=== PATIENT | male | born 1965 | race Caucasian/White ===

== ENCOUNTER 2021-07-15 03:59 | Inpatient (IN) | payer MEDICARE, MEDICAID ==
[~2021-07-15] VITALS: Ht 185.4 cm; Wt 147.6 kg
[2021-07-15 03:19] VITALS: BP 146/98
[~2021-07-15 03:59] MED LIST: IBUP-1027 PO; SUCR1ORA14 PO
[2021-07-15] MEDS ORDERED: ONDANSETRON PF 4 MG/2 ML VIAL. IV PRN (04:15)
[2021-07-15] MEDS: MORPHINE SULFATE 2 MG/ML INJ. IVP PRN ×2 (04:42→07:56)
--- NOTE | 2021-07-15 05:22 | NUR ---
Admit from [facility] to [facility] room 669 via EMS/[facility]. A/O x 4. Stand to transfer from [facility] to bed with standby assist. History of Left BKA. Prosthetic in place on arrival. Reports back pain for more than 1week and was seen in PCP office. Rates pain 7/10 located in upper medial back. Orientated to room and call light. Reviewed POC. Resting in bed. Call light at hand.
--- NOTE | 2021-07-15 06:00 | NUR ---
Reports he [facility] but can not recall his home medication list. Patient will ask to bring home med list in this morning.
[2021-07-15 07:00] VITALS: BP 144/70
[2021-07-15] MEDS: ENOXAPARIN 40 MG/0.4 ML SYRINGE. SQ SCH ×2 (10:15→19:47)
[2021-07-15] MEDS: MORPHINE SULFATE 4 MG/ML INJ. IVP PRN (10:25)
[2021-07-15] MEDS ORDERED: ALBUTEROL SULFATE 2.5 MG/3 ML NEBU. NEB PRN (10:30)
--- NOTE | 2021-07-15 10:36 | CONS ---
DATE OF CONSULTATION: 07/15/2021 PULMONARY CONSULTATION REASON FOR CONSULTATION: Lung mass. HISTORY OF PRESENT ILLNESS: The patient is a 56-year-old male who has been a smoker for 35 years. He was brought into [facility] Emergency Room with complaint of shortness of breath. Also has a cough, which has on 1 occasion productive of blood-tinged sputum. The patient has lost appetite and has lost weight. He has been a smoker for 35 years. He still smokes. He has no history of deep vein thrombosis or pulmonary embolism. A CT angiogram was performed and I had reviewed the CT chest done at [facility]. There was no evidence of pulmonary embolism. The patient has significant mediastinal and right hilar adenopathy. There is a small loculated right pleural effusion and there are multiple pleural based densities suggestive of pleural metastasis. There is significant evidence of emphysema, especially in the upper lobes. Consultation requested for further evaluation and management. PAST MEDICAL HISTORY: Significant for suspected severe COPD. Smoked for 35 years. PAST SURGICAL HISTORY: No recent surgeries. ALLERGIES: None. CURRENT MEDICATIONS: Reviewed as listed in the MRAD. REVIEW OF SYSTEMS: A 12-point system obtained. Pertinent positives discussed in my history of present illness, otherwise noncontributory. All systems that were negative were reviewed as well. FAMILY HISTORY: Noncontributory to lungs. SOCIAL HISTORY: Smoker for 35 years and still smokes cigarettes. PHYSICAL EXAMINATION: VITAL SIGNS: Reviewed. Pulse ox 98% on room air. NECK: Supple. LUNGS: With occasional wheezes. CARDIOVASCULAR: With a regular rate. ABDOMEN: Soft, nontender, obese. EXTREMITIES: With no pitting edema. LABORATORY DATA: Reviewed from [facility]. They are pending from [facility]. CT angiogram was also reviewed. IMPRESSION: 1. 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 The patient also has another masks close to the pleura. The findings on CT chest are highly suspicious for bronchogenic cancer, likely stage IV. 2. Chronic obstructive pulmonary disease with an exacerbation. 3. Weight loss and loss of appetite, secondary to suspected malignancy. RECOMMENDATIONS: 1. Discussed with the patient. I explained to him the CT chest findings. He is agreeable for invasive biopsy. He would either need bronchoscopy versus CT-guided biopsy of the mass, which is close to the pleura. I will also order a CT abdomen and pelvis and to rule out any liver or bone metastasis. 2. Add bronchodilators. 3. Hold off on any DVT prophylaxis with Lovenox until biopsies were done. 4. PFTs as an outpatient. 5. We will make further recommendations once diagnosis is confirmed. TORRIE DR: Jami TID: [id number]
--- NOTE | 2021-07-15 10:37 | HP ---
DATE OF SERVICE: 07/15/2021 ADMIT DATE: 07/15/2021 HISTORY OF PRESENT ILLNESS: The patient is a 56-year-old male patient who presented to the Emergency Room of [facility] with a complaint of severe low back pain that has been started about 2 weeks ago and has worsened over the last few days prior to arrival to the Emergency Room. He also has complained of increasing shortness of breath and some chest pain and cough that is persistent, although he denied any phlegm or hemoptysis. The patient was extensively investigated in the Emergency Room and has had lab work and imaging studies. His white cell count was slightly elevated at 12.1. His chemistry was mostly unremarkable. His prothrombin time, INR and APTT normal; however, D-dimer was high at 5.09. Urinalysis essentially unremarkable and toxic screen was positive for opiates. He did have a chest x-ray, which basically showed the cardiomediastinal silhouette is within normal limits, lungs and pleura showed diffuse interstitial prominence, and bilateral multifocal patchy opacities, greater on the right, suspected loculated right side pleural effusion and pleural thickening and the impression showed that the patient had similar to slightly decreased diffuse interstitial prominence with persistent bilateral multifocal patchy airspace disease, suspected loculated right pleural effusion and pleural thickening. Given his elevated D-dimer, he underwent CT angio of the chest, which basically showed that the patient has no evidence of pulmonary embolism; however, he has moderate right-sided hilar and right mediastinal lymphadenopathy consistent with metastatic cancer and there is a small loculated right-sided pleural effusion. There are multiple pleural based densities on the right and a few parenchymal densities, findings suggest cancer which could be bronchogenic and/or mesothelioma. Lymphoma is felt to be less likely. He did have a CT scan of the lumbar spine, which basically showed that the patient has degenerative changes with multilevel central and neuroforaminal stenosis, no acute finding. The patient was transferred to [facility] to consult the timber appraiser and for pain management. PAST MEDICAL HISTORY: Significant for chronic obstructive pulmonary disease, benign prostatic hypertrophy and chronic low back pain. PAST SURGICAL HISTORY: Significant for right hip replacement, left below-knee amputation, bilateral rotator cuff repair and bilateral carpal tunnel release. He also had had esophagogastroduodenoscopy. He apparently is known to have also gastroesophageal reflux disease and hiatal hernia according to him. ALLERGIES: He has no known drug allergies. MEDICATIONS: He is currently on following medications: He is on dicyclomine 20 mg 4 times a day, ibuprofen 400 mg every 8 hours as needed, ranitidine 150 mg twice a day, sucralfate 1 gram 4 times a day and hydrocortisone/pramoxine or Analpram rectally 3 times a day. FAMILY HISTORY: Noncontributory. SOCIAL HISTORY: He is , has grown-up children. He continues to smoke and apparently has [id number] plus. He does not drink alcohol or use recreational drugs. He is on disability. He lives with his and he has a left lower extremity prosthesis and he is able to walk. He used to drive a cab. REVIEW OF SYSTEMS: As per history of present illness. PHYSICAL EXAMINATION: GENERAL: On arrival to the Emergency Room, the patient was slightly tachypneic, but there is no pallor, jaundice, cyanosis or thyromegaly. No jugular venous distention. No lower limb edema. VITAL SIGNS: His heart rate was 88, blood pressure was 130/90, temperature was 97.9, respiratory rate was 28 and oxygen saturation was 96% on room air. HEAD, EYES, EARS, NOSE, AND THROAT: Normocephalic, atraumatic. NECK: Supple. HEART: Showed normal first and second heart sounds. No gallop or murmur. CHEST: Clear to auscultation, no crepitation or rhonchi. ABDOMEN: Distended, soft, nontender. NEUROLOGIC: He was awake, alert, responding appropriately. All cranial nerves are intact. He moves extremities without difficulty, ambulates with his prosthesis. LABORATORY DATA: This morning showed a white cell count 12.1, hemoglobin 12.4, hematocrit 37, MCV 93 and platelet count 222,000 with manual differential showed 66% polymorphs, 15% lymphocytes and 11% monocytes. His prothrombin time, INR and APTT are normal. D-dimer was high at 5.09 g/dL. His chemistry showed a serum sodium 139, potassium 3.7, chloride 102, bicarbonate 27, anion gap of 10, BUN 9, creatinine 0.8, estimated GFR was 100 mL per minute. His glucose 97, calcium was 9, magnesium was 1.8. Total bilirubin, AST, ALT, alkaline phosphatase were normal. CK was 55. Troponin I high-sensitivity was 11. Beta natriuretic peptide was 114. Total protein 6.8, albumin 3.2. Urinalysis essentially unremarkable and toxic screen was positive for opiates. His influenza A and B were negative and coronavirus by rapid antigen testing was negative. ASSESSMENT AND PLAN: In summary, this is a 56-year-old male patient who presented with severe low back pain that started about 2 weeks ago and has worsened over the last few days. He also complained of chest pain and shortness of breath. His CT angio of the chest showed that the patient has no evidence of pulmonary embolism; however, he has moderate right hilar and right mediastinal lymphadenopathy consistent with metastatic cancer. He has also small loculated right-sided pleural effusion. There are multiple pleural based densities in the right and a few parenchymal densities, finding suggestive of cancer, which could be bronchogenic or mesothelioma. We will reconcile all his medications and I have consulted the timber appraiser to assist with evaluation and treatment. WANDA DR: Abel TID: [id number]
[2021-07-15 10:43] VITALS: BP 145/85
--- NOTE | 2021-07-15 11:19 | NUR ---
Lovenox held due to tentative procedure per Dr. Sewell's orders.
[2021-07-15] MEDS: PANTOPRAZOLE 40 MG TABLET.DR. PO SCH (11:35)
[2021-07-15] MEDS: SUCRALFATE 1 GM TABLET. PO SCH ×3 (11:35→19:46)
[2021-07-15] MEDS: HYDROmorphone 2 MG/ML INJ. IVP PRN ×4 (11:36→22:54)
[2021-07-15 11:38] LABS: PROTHROMBIN TIME PATIENT 12.9 SEC (11.7-14.0)
[2021-07-15] MEDS ORDERED: ALBUTEROL SULFATE 2.5 MG/3 ML NEBU. ONE (11:40)
[2021-07-15] MEDS: IPRATRPIUM/ALBUTEROL 0.5/2.5MG 3 ML NEBU. NEB SCH ×3 (12:00→21:21)
--- NOTE | 2021-07-15 14:49 | RAD ---
CT scan abdomen and pelvis without contrast 07/15/2021 CLINICAL HISTORY: Metastatic lung cancer. TECHNIQUE: Unenhanced, contiguous, 2.5 mm axial sections were obtained through the abdomen and pelvis . One or more of the following individualized dose reduction techniques were utilized for this study: 1. Automated exposure control. 2. Adjustment of the mA and/or kV according to patient size. 3. Use of iterative reconstruction technique. FINDINGS: Comparison is made to patient's CT scan abdomen and pelvis dated 06/15/2017. Additional comp arison is made to patient's CTA of the chest performed earlier today. Images through the lung bases demonstrate a small right pleural effusion. Pleural masses are seen sca ttered throughout the right lung base measure 5 mm to 4.3 cm in size. Rounded low-attenuation lesions are seen involving both lobes of the liver to measure 3 mm to 5.5 cm in size. These are consistent with hepatic cysts. The spleen, pancreas, and left adrenal gland are wi thin normal limits. A 2.5 cm mass is seen involving the right adrenal gland which is new since previo us examination. This is consistent with a metastasis. Residual contrast is seen both intrarenal collecting systems along with the renal pelvises and ureter s. A 5.5 cm rounded low-attenuation lesion is seen involving the midpole of the right kidney. This li leonor represents a cyst. Atherosclerotic calcification of the abdominal aorta is seen. The abdominal aorta tapers normally. Ca lcified gallstones are seen within the gallbladder. No free fluid or free air is seen within the abdo men. There is no evidence of bowel obstruction. The appendix is well-visualized and is within normal limits. No retroperitoneal lymphadenopathy is seen. A mass is seen within the mesentery of the left mid abdomen. This measures 2.5 cm in size. There is n ew since the previous examination. This may represent an enlarged lymph node. Images through the pelvis demonstrate the urinary bladder to be contracted. Contrast is seen within t he urinary bladder. No free fluid is seen. No pelvic or inguinal lymphadenopathy is noted. Mild S-shaped curvature of the thoracolumbar spine is seen. Degenerative changes are seen involving l ower thoracic and throughout the lumbar spine. Moderate degenerative changes are seen within the left hip. The patient is post right VITO. IMPRESSION: 1. 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 2. 2.5 cm mass is seen within the mesentery of the left mid abdomen which likely represents a metasta tic lymph node. Electronically signed by: Alfonzo Dalton MD (07/15/2021 2:47 PM) [id number]
[2021-07-15 14:56] VITALS: BP 126/80
--- NOTE | 2021-07-15 16:22 | NUR ---
SS following for discharge planning. SS reviewed pt chart and discussed with pt RN. Pt is from home with spouse and is currently on room air. Pulmonology following. PT/OT ordered. SS will continue to follow for discharge planning.
[2021-07-15 19:13] VITALS: BP 131/67
[2021-07-15] MEDS ORDERED: SUCRALFATE 1 GM/10 ML ORAL.SUSP. PO SCH (21:00)
[2021-07-15 22:22] VITALS: BP 122/61
[2021-07-16] VITALS (16 sets, daily range): BP systolic 112–140; BP diastolic 62–89
[2021-07-16] MEDS: HYDROmorphone 2 MG/ML INJ. IVP PRN ×7 (02:06→22:54)
[2021-07-16] MEDS: IPRATRPIUM/ALBUTEROL 0.5/2.5MG 3 ML NEBU. NEB SCH ×4 (07:46→20:00)
--- NOTE | 2021-07-16 08:25 | PN ---
DATE: 07/16/2021 SUBJECTIVE: The patient is sitting, slightly up in bed, complaining of severe back pain. He has had a CT scan of the abdomen and pelvis, which apparently showed a 2.5 cm right adrenal metastases and also 2.5 cm masses seen within the mesentery of the left mid abdomen, which likely represents metastatic lymph node. He apparently is scheduled for a CT-guided abdominal mass biopsy this morning. PHYSICAL EXAMINATION: GENERAL: When I examined him, he looked well and was clearly in no apparent respiratory distress. There is no pallor, jaundice, cyanosis or thyromegaly. No jugular venous distention. No limb edema. VITAL SIGNS: His heart rate was 95, blood pressure is 128/62, temperature was 98.1, respiratory rate was 22 and oxygen saturation was 95% on room air. HEAD, EYES, EARS, NOSE, AND THROAT: Normocephalic, atraumatic. NECK: Supple. HEART: Normal first and second heart sounds. No gallop, rub or murmur. CHEST: Shows central trachea, equal bilateral chest expansion, air entry, vesicular breath sounds. I could not really appreciate any crepitation or rhonchi. ABDOMEN: Distended, soft, nontender. NEUROLOGIC: He was grossly intact. He has left below-knee amputation. His intake and output are incompletely recorded. LABORATORY DATA: Showed prothrombin time of 12.9, INR 1. ASSESSMENT: 1. Moderate right hilar and right mediastinal lymphadenopathy consistent with metastatic cancer. small loculated right side pleural effusion. 2. He has multiple pleural based densities in the right and few parenchymal densities finding suggestive of cancer, which could be bronchogenic or mesothelioma. CT scan of the abdomen showed that he has a mass in the right adrenal gland and also metastatic lymph nodes. 3. Other medical problems include: A. Chronic obstructive pulmonary disease. B. Benign prostatic hypertrophy. PLAN: The patient is scheduled for CT-guided abdominal mass biopsy. BELL/DARYN DR: Abel TID: [id number]
[2021-07-16] MEDS: ENOXAPARIN 40 MG/0.4 ML SYRINGE. SQ SCH ×2 (08:35→21:00)
--- NOTE | 2021-07-16 10:00 | PDOC ---
PULMONARY PROGRESS NOTES DATE: 07/16/21 TIME: 09:59 Subjective Denies any shortness of breath. Vitals Vital Signs Date Time Temp Pulse Resp B/P (MAP) Pulse Ox O2 Delivery O2 Flow Rate FiO2 07/16/21 08:24 Room Air 07/16/21 07:50 95 07/16/21 07:00 97.7 96 18 127/77 (94) 97.7 General: Alert, No acute distress Lungs: Clear Cardiovascular: S1 Abdomen: Soft, Other (Obese) Neuro Exam: Alert Extremities: No Edema Skin: Warm Labs Laboratory Tests Test 07/15/21 10:25 Prothrombin Time 12.9 SEC (11.7-14.0) Prothromb Time International Ratio 1.0 (0.8-1.1) Laboratory Tests Test 07/15/21 10:25 Prothrombin Time 12.9 SEC (11.7-14.0) Prothromb Time International Ratio 1.0 (0.8-1.1) Medications Active Scripts Medications Dose Route/Sig Max Daily Dose Days Date Category Sucralfate 1 Gm/10 Ml Oral.susp 10 Ml PO BID 05/09/14 Reported Impression . 1. 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 The patient also has another masks close to the pleura. The findings on CT chest are highly suspicious for bronchogenic cancer, likely stage IV. 2. Chronic obstructive pulmonary disease with an exacerbation. 3. Weight loss and loss of appetite, secondary to suspected malignancy. 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 Plan . 1. Discussed with patient and interventional radiology. Based on the CT abdomen and pelvis, would go for mesenteric lymph node versus adrenal metastasis. We will avoid the lung due to risk of pneumothorax 2. bronchodilators. 3. Hold off on any DVT prophylaxis with Lovenox until biopsies were done. 4. PFTs as an outpatient. 5. We will make further recommendations once diagnosis is confirmed. ISRAEL PIZANO MD July 16, 2021 10:00
[2021-07-16] MEDS ORDERED: LIDOCAINE WITH 8.4% SOD BICARB 3 ML DISP.SYRIN. ONE (10:47)
[2021-07-16] MEDS ORDERED: fentaNYL PF VIAL 250 MCG/5 ML VIAL ONE (11:04)
[2021-07-16] MEDS ORDERED: MIDAZOLAM HCL/PF 5 MG/5 ML VIAL. ONE (11:04)
[2021-07-16] MEDS ORDERED: LIDOCAINE WITH 8.4% SOD BICARB 3 ML DISP.SYRIN. IJ ONE (11:15)
[2021-07-16] MEDS ORDERED: MIDAZOLAM HCL/PF 5 MG/5 ML VIAL. IV ONE (11:15)
[2021-07-16] MEDS ORDERED: fentaNYL PF VIAL 250 MCG/5 ML VIAL IV ONE (11:15)
[2021-07-16] MEDS: SUCRALFATE 1 GM TABLET. PO SCH ×4 (11:30→20:39)
--- NOTE | 2021-07-16 12:00 | NUR ---
Patient back from biopsy around 1200. O2 sat in high 80s, 2L O2 NC placed, rest of VSS. Frequent VS printed & placed in chart. Band-aide on L lateral abd CDI.
[2021-07-16] MEDS: PANTOPRAZOLE 40 MG TABLET.DR. PO SCH (12:22)
[2021-07-16] MEDS: MORPHINE SULFATE 4 MG/ML INJ. IVP PRN ×2 (14:16→20:16)
--- NOTE | 2021-07-16 16:13 | RAD ---
07/16/2021 Procedure: CT-guided biopsy, left peritoneal nodule Clinical Indication: Lung mass, mediastinal adenopathy, pleural disease and nodularity with associate d left peritoneal nodule. Patient has poor respiratory status and severe emphysema. Biopsy of left pe ritoneal nodule performed to establish diagnosis of possible malignancy/metastatic disease Consent: The procedure was explained in its entirety to the patient or the patients designated repres entative by a member of the treatment team, including a discussion of the risks, benefits and commonl y accepted alternatives to the procedure, as well as the expected consequences of no therapy whatsoev er. Discussion of the risks included, but was not limited to, those that are most frequent and thos e that are rare but possibly severe or life-threatening, as well as the possibility of unforeseen com plications. Discussion: Informed consent was obtained. Patient was brought to the CT scanner and placed in the supine position. A time out procedure was performed. The left abdomen was prepped and draped using st erile barrier technique. CT imaging represents a left peritoneal nodule, similar prior imaging studie s. Percent lidocaine was administered for local anesthesia. Under intermittent CT guidance, a 17-gaug e [place] advanced to the periphery of the nodule. Core biopsy samples were obtained and placed in form tushar. [place] were removed. Repeat CT demonstrates no immediate complication. Sterile dressings were applied. Sedation: Conscious sedation was performed for 30 minutes. Sedation was carried while the patient wa s continually monitored by a member of the Radiology nursing staff. Continual cardiopulmonary monito ring was carried out during the procedure. Impression: CT-guided biopsy, left peritoneal nodule CT DOSING PQRS STATEMENT: One or more of the following individualized dose reduction techniques were utilized for this examinat ion: 1. Automated exposure control 2. Adjustment of the mA and/or kV according to patient size 3. Use of iterative reconstruction technique Electronically signed by: Donis Munguia MD (07/16/2021 4:11 PM) [id number]
[2021-07-16] MEDS: ACETAMINOPHEN 325 MG TABLET. PO PRN (20:40)
--- NOTE | 2021-07-16 22:40 | NUR ---
Further pain management orders rec'd by telephone per Dr. Cotter.
[2021-07-16] MEDS ORDERED: diphenhydrAMINE HCL 25 MG CAPSULE PO PRN (22:45)
[2021-07-17 03:30] VITALS: BP 122/82
[2021-07-17] MEDS: HYDROmorphone 2 MG/ML INJ. IVP PRN ×5 (03:51→21:30)
[2021-07-17 05:02] LABS: BASO # 0.1 x10^3/uL (0.0-0.2); BASO % 1 % (0-3); EOS # 0.7 x10^3/uL (0.0-0.7); EOS % 7 % (0-3); HEMATOCRIT 36.6 % (39.0-53.0); LYMPH # 1.8 x10^3/uL (1.0-4.8); LYMPH % 17 % (24-48); MEAN CORPUSCULAR HEMOGLOBIN 31 pg (25-35); MEAN CORPUSCULAR HGB CONC 33 g/dL (31-37); MEAN CORPUSCULAR VOLUME 93 fL (79-100); MONO # 1.5 x10^3/uL (0.0-1.1); MONO % 14 % (0-9); NEUT # 6.5 x10^3/uL (1.8-7.7); NEUT % 61 % (31-73); PLATELET COUNT 222 x10^3/uL (140-400); RED BLOOD COUNT 3.93 x10^6/uL (4.30-5.70); RED CELL DISTRIBUTION WIDTH 14.7 % (11.5-14.5); WHITE BLOOD COUNT 10.6 x10^3/uL (4.0-11.0)
[2021-07-17 05:56] LABS: ALBUMIN 2.9 g/dL (3.4-5.0); ALBUMIN/GLOBULIN RATIO 0.7 (1.0-1.7); CALCIUM 9.1 mg/dL (8.5-10.1); CREATININE 0.7 mg/dL (0.7-1.3); GFR 117.5; POTASSIUM 3.7 mmol/L (3.5-5.1); TOTAL BILIRUBIN 0.7 mg/dL (0.2-1.0); TOTAL PROTEIN 7.2 g/dL (6.4-8.2)
[2021-07-17 07:00] VITALS: BP 126/66
[2021-07-17] MEDS: IPRATRPIUM/ALBUTEROL 0.5/2.5MG 3 ML NEBU. NEB SCH ×4 (07:43→20:00)
[2021-07-17] MEDS: PANTOPRAZOLE 40 MG TABLET.DR. PO SCH (08:51)
[2021-07-17] MEDS: SUCRALFATE 1 GM TABLET. PO SCH ×4 (08:51→20:39)
[2021-07-17] MEDS: ENOXAPARIN 40 MG/0.4 ML SYRINGE. SQ SCH ×2 (09:00→20:39)
--- NOTE | 2021-07-17 09:07 | PN ---
DATE: 07/17/2021 SUBJECTIVE: The patient is resting, slightly propped up in bed, in no apparent respiratory distress. He continued to have severe low back pain for which he is now on hydromorphone 2 mg every [address]-guided biopsy of his left peritoneal nodule successfully and his post-procedures had no complications. PHYSICAL EXAMINATION: GENERAL: When I examined him this morning, he looked slightly tachypneic, but no pallor, jaundice, cyanosis or thyromegaly. No jugular venous distention. No lower limb edema. VITAL SIGNS: His heart rate was 90, blood pressure is 122/82, temperature was 98, respiratory rate 24, and oxygen saturation was 94% on 3 liters of oxygen. HEAD, EYES, EARS, NOSE, AND THROAT: Normocephalic, atraumatic. NECK: Supple. HEART: Normal first and second heart sounds. No gallop, rub or murmur. CHEST: Shows central trachea, equal bilateral chest expansion, air entry, vesicular breath sounds with diffuse bilateral rhonchi. I could not appreciate any crepitation. ABDOMEN: Distended, soft, nontender. NEUROLOGIC: He is grossly intact. He has left below-knee amputation. His intake and output are incompletely recorded. LABORATORY DATA: His lab work this morning showed white cell count of 10.6, hemoglobin 12, hematocrit 36, MCV 93 and platelet count 222,000 with normal manual differential. His chemistry showed a serum sodium 139, potassium 3.7, chloride 102, bicarbonate 28, anion gap of 9, BUN 11, creatinine 0.7. Estimated GFR was 117 mL per minute. His glucose 101, calcium was 9.1. Total bilirubin, AST, ALT, alkaline phosphatase were normal. Total protein 7.2, albumin was 2.9. His prothrombin time and INR within normal range. ASSESSMENT: 1. This is a 56-year-old male patient who presented with severe low back pain that has started about 2 weeks ago and has worsened over the last few days. Also, complained of increasing shortness of breath and some chest pain and cough that has been resistant, although denies any phlegm or hemoptysis. His CT angio of the chest showed moderate right hilar and right mediastinal lymphadenopathy consistent with metastatic disease, has also small loculated right side pleural effusion and pleural thickening. 2. He has multiple pleural based densities and on the right few parenchymal densities findings suggestive of cancer, which could be bronchogenic or mesothelioma. 3. CT scan of the abdomen showed a mass in the right adrenal gland and also metastatic lymph nodes. 4. Other medical problems include: A. Chronic obstructive pulmonary disease. B. Benign prostatic hypertrophy. PLAN: To continue with pain management. Continue with bronchodilator. Continue with DVT prophylaxis. I will discuss with Dr. Sewell whether we need to do an MRI or bone scan to elucidate the cause of his low back pain as he has evidence of metastasis to adrenal gland and mesenteric lymph nodes. He could have also metastasis to the lumbar vertebrae. HERMAN DR: Abel TID: [id number]
--- NOTE | 2021-07-17 10:11 | PDOC ---
PULMONARY PROGRESS NOTES DATE: 07/17/21 TIME: 10:10 Subjective Denies any shortness of breath. Status post mesenteric lymph node biopsy. Vitals Vital Signs Date Time Temp Pulse Resp B/P (MAP) Pulse Ox O2 Delivery O2 Flow Rate FiO2 07/17/21 08:53 93 Nasal Cannula 3.0 07/17/21 05:25 24 07/17/21 03:30 98.0 90 122/82 (95) 98.0 General: Alert, No acute distress Lungs: Clear Cardiovascular: S1 Abdomen: Soft, Other (Obese) Neuro Exam: Alert Extremities: No Edema Skin: Warm Labs Laboratory Tests Test 07/15/21 10:25 07/17/21 04:30 07/17/21 08:13 Prothrombin Time 12.9 SEC (11.7-14.0) Prothromb Time International Ratio 1.0 (0.8-1.1) White Blood Count 10.6 x10^3/uL (4.0-11.0) Red Blood Count 3.93 x10^6/uL (4.30-5.70) Hemoglobin 12.0 g/dL (13.0-17.5) Hematocrit 36.6 % (39.0-53.0) Mean Corpuscular Volume 93 fL (79-100) Mean Corpuscular Hemoglobin 31 pg (25-35) Mean Corpuscular Hemoglobin Concent 33 g/dL (31-37) Red Cell Distribution Width 14.7 % (11.5-14.5) Platelet Count 222 x10^3/uL (140-400) Neutrophils (%) (Auto) 61 % (31-73) Lymphocytes (%) (Auto) 17 % (24-48) Monocytes (%) (Auto) 14 % (0-9) Eosinophils (%) (Auto) 7 % (0-3) Basophils (%) (Auto) 1 % (0-3) Neutrophils # (Auto) 6.5 x10^3/uL (1.8-7.7) Lymphocytes # (Auto) 1.8 x10^3/uL (1.0-4.8) Monocytes # (Auto) 1.5 x10^3/uL (0.0-1.1) Eosinophils # (Auto) 0.7 x10^3/uL (0.0-0.7) Basophils # (Auto) 0.1 x10^3/uL (0.0-0.2) Sodium Level 139 mmol/L (136-145) Potassium Level 3.7 mmol/L (3.5-5.1) Chloride Level 102 mmol/L (98-107) Carbon Dioxide Level 28 mmol/L (21-32) Anion Gap 9 (6-14) Blood Urea Nitrogen 11 mg/dL (8-26) Creatinine 0.7 mg/dL (0.7-1.3) Estimated GFR (Cockcroft-Gault) 117.5 BUN/Creatinine Ratio 16 (6-20) Glucose Level 101 mg/dL (70-99) Calcium Level 9.1 mg/dL (8.5-10.1) Total Bilirubin 0.7 mg/dL (0.2-1.0) Aspartate Amino Transf (AST/SGOT) 14 U/L (15-37) Alanine Aminotransferase (ALT/SGPT) 14 U/L (16-63) Alkaline Phosphatase 98 U/L (46-116) Total Protein 7.2 g/dL (6.4-8.2) Albumin 2.9 g/dL (3.4-5.0) Albumin/Globulin Ratio 0.7 (1.0-1.7) Glucose (Fingerstick) 126 mg/dL (70-99) Laboratory Tests Test 07/17/21 04:30 07/17/21 08:13 White Blood Count 10.6 x10^3/uL (4.0-11.0) Red Blood Count 3.93 x10^6/uL (4.30-5.70) Hemoglobin 12.0 g/dL (13.0-17.5) Hematocrit 36.6 % (39.0-53.0) Mean Corpuscular Volume 93 fL (79-100) Mean Corpuscular Hemoglobin 31 pg (25-35) Mean Corpuscular Hemoglobin Concent 33 g/dL (31-37) Red Cell Distribution Width 14.7 % (11.5-14.5) Platelet Count 222 x10^3/uL (140-400) Neutrophils (%) (Auto) 61 % (31-73) Lymphocytes (%) (Auto) 17 % (24-48) Monocytes (%) (Auto) 14 % (0-9) Eosinophils (%) (Auto) 7 % (0-3) Basophils (%) (Auto) 1 % (0-3) Neutrophils # (Auto) 6.5 x10^3/uL (1.8-7.7) Lymphocytes # (Auto) 1.8 x10^3/uL (1.0-4.8) Monocytes # (Auto) 1.5 x10^3/uL (0.0-1.1) Eosinophils # (Auto) 0.7 x10^3/uL (0.0-0.7) Basophils # (Auto) 0.1 x10^3/uL (0.0-0.2) Sodium Level 139 mmol/L (136-145) Potassium Level 3.7 mmol/L (3.5-5.1) Chloride Level 102 mmol/L (98-107) Carbon Dioxide Level 28 mmol/L (21-32) Anion Gap 9 (6-14) Blood Urea Nitrogen 11 mg/dL (8-26) Creatinine 0.7 mg/dL (0.7-1.3) Estimated GFR (Cockcroft-Gault) 117.5 BUN/Creatinine Ratio 16 (6-20) Glucose Level 101 mg/dL (70-99) Calcium Level 9.1 mg/dL (8.5-10.1) Total Bilirubin 0.7 mg/dL (0.2-1.0) Aspartate Amino Transf (AST/SGOT) 14 U/L (15-37) Alanine Aminotransferase (ALT/SGPT) 14 U/L (16-63) Alkaline Phosphatase 98 U/L (46-116) Total Protein 7.2 g/dL (6.4-8.2) Albumin 2.9 g/dL (3.4-5.0) Albumin/Globulin Ratio 0.7 (1.0-1.7) Glucose (Fingerstick) 126 mg/dL (70-99) Medications Active Scripts Medications Dose Route/Sig Max Daily Dose Days Date Category Sucralfate 1 Gm/10 Ml Oral.susp 10 Ml PO BID 05/09/14 Reported Impression . 1. 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 The patient also has another masks close to the pleura. The findings on CT chest are highly suspicious for bronchogenic cancer, likely stage IV. 2. Chronic obstructive pulmonary disease with an exacerbation. 3. Weight loss and loss of appetite, secondary to suspected malignancy. 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 Plan . 1. Status post biopsy of mesenteric lymph node . Await results. 2. bronchodilators. 3. Discussed with Dr. Cotter. Consult medical oncology. 4. PFTs as an outpatient. 5. We will make further recommendations once diagnosis is confirmed. ISRAEL PIZANO MD July 17, 2021 10:11
[2021-07-17 11:00] VITALS: BP 147/80
[2021-07-17] MEDS: ACETAMINOPHEN 325 MG TABLET. PO PRN (11:25)
[2021-07-17 15:00] VITALS: BP 137/78
[2021-07-17 19:10] VITALS: BP 128/80
[2021-07-17] MEDS: GABAPENTIN 300 MG CAPSULE. PO SCH (20:38)
[2021-07-17 23:25] VITALS: BP 141/90
[2021-07-18] MEDS: HYDROmorphone 2 MG/ML INJ. IVP PRN ×5 (01:37→20:35)
[2021-07-18 07:00] VITALS: BP 136/87
[2021-07-18] MEDS: IPRATRPIUM/ALBUTEROL 0.5/2.5MG 3 ML NEBU. NEB SCH ×4 (07:16→19:14)
[2021-07-18] MEDS: PANTOPRAZOLE 40 MG TABLET.DR. PO SCH (08:11)
[2021-07-18] MEDS: SUCRALFATE 1 GM TABLET. PO SCH ×4 (08:11→20:34)
[2021-07-18] MEDS: ENOXAPARIN 40 MG/0.4 ML SYRINGE. SQ SCH ×2 (08:12→20:34)
[2021-07-18] MEDS: DOCUSATE SODIUM 100 MG CAPSULE. PO SCH ×2 (08:58→20:34)
[2021-07-18] MEDS: IBUPROFEN 200 MG TABLET. PO PRN ×2 (08:59→22:51)
[2021-07-18] MEDS: POLYETHYLENE GLYCOL 3350 17 GM PACKET. PO SCH (09:00)
--- NOTE | 2021-07-18 09:05 | PN ---
DATE: 07/18/2021 SUBJECTIVE: The patient is resting, slightly propped up in bed, in no apparent distress. He continues to complain of severe back pain that required hydromorphone 2 mg every 4 hours. I did order a total body bone scan to see if there is any metastatic disease to his lumbar spine. I also consulted the medical oncologist; however, he has not seen him yet. We are also awaiting the results of the mesenteric lymph node biopsy. PHYSICAL EXAMINATION: GENERAL: When I examined him, he looked well and was clearly in no apparent respiratory distress and there was no pallor, jaundice, cyanosis. No lymphadenopathy, no thyromegaly, no jugular venous distention. No limb edema. VITAL SIGNS: His heart rate was 96, blood pressure is 136/87, temperature was 98, respiratory rate 22, and oxygen saturation was 96% on 3 liters of oxygen. HEAD, EYES, EARS, NOSE, AND THROAT: Normocephalic, atraumatic. NECK: Supple. HEART: Showed normal first and second heart sounds. No gallop, rub or murmur. CHEST: Clear to auscultation, no crepitation or rhonchi. ABDOMEN: Distended, soft, nontender. NEUROLOGIC: He is awake, alert, responding appropriately. All cranial nerves intact. He moves upper extremities without difficulty. He has left below-knee amputation. He is able to ambulate with a walker using his prosthesis. His intake was 600, output was 1200. LABORATORY DATA: Today's labs are still pending at the time of this dictation. ASSESSMENT: 1. Low back pain that started about 2 weeks ago and worsened over the few days prior to admission. He also complained of increasing shortness of breath and some chest pain, cough that has been resistant although he denied any phlegm or hemoptysis. His CT scan of the chest showed moderate right hilar and right mediastinal lymphadenopathy consistent with metastatic disease. He also has small loculated right-sided pleural effusion and pleural thickening. 2. He has multiple pleural based densities on the right, few parenchymal densities, finding suggestive of cancer, which could be bronchogenic or mesothelioma. 3. CT scan of the abdomen showed a mass in the right adrenal gland and also metastatic mesenteric lymph node. 4. Other medical problems include: A. Chronic obstructive pulmonary disease. B. Benign prostatic hypertrophy. PLAN: To continue with pain management. This patient continued to require hydromorphone. I will add also ibuprofen in between and Colace and MiraLax for constipation. Meanwhile, we will wait for the outcome of the biopsy as well as bone scan and decide on further management accordingly. BELL/JOCELIN DR: Abel TID: [id number]
[2021-07-18 11:00] VITALS: BP 132/85
--- NOTE | 2021-07-18 11:33 | PDOC ---
PULMONARY PROGRESS NOTES DATE: 07/18/21 TIME: 11:32 Subjective Denies any shortness of breath. Status post mesenteric lymph node biopsy. Vitals Vital Signs Date Time Temp Pulse Resp B/P (MAP) Pulse Ox O2 Delivery O2 Flow Rate FiO2 07/18/21 11:23 96 Nasal Cannula 3.0 07/18/21 07:00 98.0 96 22 136/87 (103) 98.0 General: Alert, No acute distress Lungs: Clear Cardiovascular: S1 Abdomen: Soft, Other (Obese) Neuro Exam: Alert Extremities: No Edema Skin: Warm Labs Laboratory Tests Test 07/17/21 04:30 07/17/21 08:13 White Blood Count 10.6 x10^3/uL (4.0-11.0) Red Blood Count 3.93 x10^6/uL (4.30-5.70) Hemoglobin 12.0 g/dL (13.0-17.5) Hematocrit 36.6 % (39.0-53.0) Mean Corpuscular Volume 93 fL (79-100) Mean Corpuscular Hemoglobin 31 pg (25-35) Mean Corpuscular Hemoglobin Concent 33 g/dL (31-37) Red Cell Distribution Width 14.7 % (11.5-14.5) Platelet Count 222 x10^3/uL (140-400) Neutrophils (%) (Auto) 61 % (31-73) Lymphocytes (%) (Auto) 17 % (24-48) Monocytes (%) (Auto) 14 % (0-9) Eosinophils (%) (Auto) 7 % (0-3) Basophils (%) (Auto) 1 % (0-3) Neutrophils # (Auto) 6.5 x10^3/uL (1.8-7.7) Lymphocytes # (Auto) 1.8 x10^3/uL (1.0-4.8) Monocytes # (Auto) 1.5 x10^3/uL (0.0-1.1) Eosinophils # (Auto) 0.7 x10^3/uL (0.0-0.7) Basophils # (Auto) 0.1 x10^3/uL (0.0-0.2) Sodium Level 139 mmol/L (136-145) Potassium Level 3.7 mmol/L (3.5-5.1) Chloride Level 102 mmol/L (98-107) Carbon Dioxide Level 28 mmol/L (21-32) Anion Gap 9 (6-14) Blood Urea Nitrogen 11 mg/dL (8-26) Creatinine 0.7 mg/dL (0.7-1.3) Estimated GFR (Cockcroft-Gault) 117.5 BUN/Creatinine Ratio 16 (6-20) Glucose Level 101 mg/dL (70-99) Calcium Level 9.1 mg/dL (8.5-10.1) Total Bilirubin 0.7 mg/dL (0.2-1.0) Aspartate Amino Transf (AST/SGOT) 14 U/L (15-37) Alanine Aminotransferase (ALT/SGPT) 14 U/L (16-63) Alkaline Phosphatase 98 U/L (46-116) Total Protein 7.2 g/dL (6.4-8.2) Albumin 2.9 g/dL (3.4-5.0) Albumin/Globulin Ratio 0.7 (1.0-1.7) Glucose (Fingerstick) 126 mg/dL (70-99) Medications Active Scripts Medications Dose Route/Sig Max Daily Dose Days Date Category Sucralfate 1 Gm/10 Ml Oral.susp 10 Ml PO BID 05/09/14 Reported Impression . 1. 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 The patient also has another masks close to the pleura. The findings on CT chest are highly suspicious for bronchogenic cancer, likely stage IV. 2. Chronic obstructive pulmonary disease with an exacerbation. 3. Weight loss and loss of appetite, secondary to suspected malignancy. 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 Plan . 1. Status post biopsy of mesenteric lymph node . Await results. 2. bronchodilators. 3. Discussed with Dr. Cotter. Consult medical oncology. 4. PFTs as an outpatient. 5. We will make further recommendations once diagnosis is confirmed. ISRAEL PIZANO MD July 18, 2021 11:33
[2021-07-18 15:00] VITALS: BP 123/73
--- NOTE | 2021-07-18 18:48 | NUR ---
Patient had 2 episodes of vomiting this afternoon, shortly after eating & Dilaudid administration. Both episodes were small & brownish in color with food in it. Patient had chocolate cake with lunch & said it tasted gross as well. Zofran administered. Will continue to monitor.
[2021-07-18 19:42] VITALS: BP 125/65
[2021-07-18] MEDS: GABAPENTIN 300 MG CAPSULE. PO SCH (20:34)
[2021-07-18 22:47] VITALS: BP 103/59
[2021-07-19] MEDS: HYDROmorphone 2 MG/ML INJ. IVP PRN ×5 (00:38→21:26)
[2021-07-19 03:22] VITALS: BP 127/68
[2021-07-19 07:00] VITALS: BP 149/78
[2021-07-19 07:26] LABS: HEMATOCRIT 34.4 % (39.0-53.0); HEMOGLOBIN 11.3 g/dL (13.0-17.5); RED BLOOD COUNT 3.66 x10^6/uL (4.30-5.70); RED CELL DISTRIBUTION WIDTH 14.3 % (11.5-14.5); WHITE BLOOD COUNT 9.6 x10^3/uL (4.0-11.0)
[2021-07-19] MEDS: IPRATRPIUM/ALBUTEROL 0.5/2.5MG 3 ML NEBU. NEB SCH ×4 (07:27→19:43)
[2021-07-19 07:29] LABS: ALBUMIN 2.6 g/dL (3.4-5.0); ALBUMIN/GLOBULIN RATIO 0.6 (1.0-1.7); CALCIUM 8.9 mg/dL (8.5-10.1); CREATININE 0.7 mg/dL (0.7-1.3); GFR 117.5; POTASSIUM 4.3 mmol/L (3.5-5.1); TOTAL BILIRUBIN 0.6 mg/dL (0.2-1.0); TOTAL PROTEIN 6.9 g/dL (6.4-8.2)
[2021-07-19] MEDS: POLYETHYLENE GLYCOL 3350 17 GM PACKET. PO SCH (07:39)
[2021-07-19] MEDS: DOCUSATE SODIUM 100 MG CAPSULE. PO SCH ×2 (07:39→20:02)
[2021-07-19] MEDS: SUCRALFATE 1 GM TABLET. PO SCH ×4 (07:39→20:02)
[2021-07-19] MEDS: PANTOPRAZOLE 40 MG TABLET.DR. PO SCH (07:39)
[2021-07-19] MEDS: ENOXAPARIN 40 MG/0.4 ML SYRINGE. SQ SCH ×2 (07:40→20:03)
--- NOTE | 2021-07-19 08:06 | PN ---
DATE: 07/19/2021 SUBJECTIVE: The patient is resting, slightly propped up in bed, in no apparent respiratory distress. He continued to complain of severe pain. The pain medication does not last long enough. Nursing staff did not voice any concern. PHYSICAL EXAMINATION: GENERAL: When I examined him, he looked well. VITAL SIGNS: His heart rate was 77, blood pressure was 127/68, temperature 97.3, respiratory rate 22, and oxygen saturation was 95% on 3 liters of oxygen. The rest of clinical exam is stable. His intake was 1340, output was 2480. LABORATORY DATA: As of this morning, his white cell count is 9.6, hemoglobin 11, hematocrit 34, MCV 94 and platelet count of 186,000. His chemistry showed a serum sodium 137, potassium 4.3, chloride 102, bicarbonate 29, anion gap of 6, BUN 10, creatinine 0.7, estimated GFR was 117 mL per minute. His glucose was 89, calcium was 8.9. Total bilirubin, AST, ALT, alkaline phosphatase were normal. Total protein 6.9, albumin was 2.6. ASSESSMENT: 1. Low back pain that started about 2 weeks ago and worsened over the last few days prior to admission. He has also complained of increased shortness of breath and some chest pain, cough that has been persistent, although he denied any phlegm or hemoptysis. CT scan of the chest showed moderate right hilar and right mediastinal lymphadenopathy consistent with metastatic disease. He also has small loculated right-sided pleural effusion and pleural thickening. 2. He has multiple pleural based densities on the right, few parenchymal densities, findings suggestive of cancer, which could be bronchogenic or mesothelioma. 3. CT scan of the abdomen and pelvis showed a mass in the right adrenal gland and also metastatic mesenteric lymph node. 4. Other medical problems include: A. Chronic obstructive pulmonary disease. B. Benign prostatic hypertrophy. PLAN: Continue with pain management. I added oxycodone 10 mg twice a day. Continue with Colace and MiraLax for opioid-induced constipation. Await the outcome of the biopsy as well as the bone scan. WANDA DR: Abel TID: [id number]
[2021-07-19] MEDS: oxyCODONE ER 10 MG TAB.ER.12H PO SCH ×2 (08:18→20:02)
[2021-07-19] MEDS ORDERED: OMEP40CA7 PO (08:23)
[2021-07-19] MEDS ORDERED: VARE1TAB23 PO (08:23)
[2021-07-19] MEDS ORDERED: ALBU2.5V8 IH (08:23)
[2021-07-19] MEDS ORDERED: ERGO2000 PO (08:23)
[2021-07-19] MEDS ORDERED: TAMS0.4C97 PO (08:23)
[2021-07-19] MEDS ORDERED: CRESTOR5 MG PO (08:23)
[2021-07-19] MEDS ORDERED: FAMO40TA57 PO (08:23)
[2021-07-19] MEDS ORDERED: GABA800T5 PO (08:24)
[2021-07-19] MEDS ORDERED: ALBUTEROL SULFATE 2.5 MG/3 ML NEBU. INH PRN (08:45)
[2021-07-19] MEDS ORDERED: ERGOCALCIFEROL (VITAMIN D2) 50,000 UNIT CAPSULE. PO SCH (09:00)
[2021-07-19] MEDS ORDERED: NICOTINE POLACRILEX 2MG GUM PACKAGE of 12. BC PRN (09:00)
[2021-07-19] MEDS: TAMSULOSIN 0.4 MG CAP.ER.24H. PO SCH ×2 (09:16→12:17)
[2021-07-19] MEDS: FAMOTIDINE 20 MG TABLET. PO SCH ×2 (09:16→20:02)
--- NOTE | 2021-07-19 09:38 | PDOC ---
PULMONARY PROGRESS NOTES DATE: 07/19/21 TIME: 09:37 Subjective Denies any shortness of breath. Status post mesenteric lymph node biopsy. Vitals Vital Signs Date Time Temp Pulse Resp B/P (MAP) Pulse Ox O2 Delivery O2 Flow Rate FiO2 07/19/21 08:18 95 Nasal Cannula 3.0 07/19/21 07:00 97.6 80 20 149/78 (101) 97.6 General: Alert, No acute distress Lungs: Clear Cardiovascular: S1 Abdomen: Soft, Other (Obese) Neuro Exam: Alert Extremities: No Edema Skin: Warm Labs Laboratory Tests Test 07/19/21 06:30 White Blood Count 9.6 x10^3/uL (4.0-11.0) Red Blood Count 3.66 x10^6/uL (4.30-5.70) Hemoglobin 11.3 g/dL (13.0-17.5) Hematocrit 34.4 % (39.0-53.0) Mean Corpuscular Volume 94 fL (79-100) Mean Corpuscular Hemoglobin 31 pg (25-35) Mean Corpuscular Hemoglobin Concent 33 g/dL (31-37) Red Cell Distribution Width 14.3 % (11.5-14.5) Platelet Count 186 x10^3/uL (140-400) Sodium Level 137 mmol/L (136-145) Potassium Level 4.3 mmol/L (3.5-5.1) Chloride Level 102 mmol/L (98-107) Carbon Dioxide Level 29 mmol/L (21-32) Anion Gap 6 (6-14) Blood Urea Nitrogen 10 mg/dL (8-26) Creatinine 0.7 mg/dL (0.7-1.3) Estimated GFR (Cockcroft-Gault) 117.5 BUN/Creatinine Ratio 14 (6-20) Glucose Level 89 mg/dL (70-99) Calcium Level 8.9 mg/dL (8.5-10.1) Total Bilirubin 0.6 mg/dL (0.2-1.0) Aspartate Amino Transf (AST/SGOT) 17 U/L (15-37) Alanine Aminotransferase (ALT/SGPT) 15 U/L (16-63) Alkaline Phosphatase 114 U/L (46-116) Total Protein 6.9 g/dL (6.4-8.2) Albumin 2.6 g/dL (3.4-5.0) Albumin/Globulin Ratio 0.6 (1.0-1.7) Laboratory Tests Test 07/19/21 06:30 White Blood Count 9.6 x10^3/uL (4.0-11.0) Red Blood Count 3.66 x10^6/uL (4.30-5.70) Hemoglobin 11.3 g/dL (13.0-17.5) Hematocrit 34.4 % (39.0-53.0) Mean Corpuscular Volume 94 fL (79-100) Mean Corpuscular Hemoglobin 31 pg (25-35) Mean Corpuscular Hemoglobin Concent 33 g/dL (31-37) Red Cell Distribution Width 14.3 % (11.5-14.5) Platelet Count 186 x10^3/uL (140-400) Sodium Level 137 mmol/L (136-145) Potassium Level 4.3 mmol/L (3.5-5.1) Chloride Level 102 mmol/L (98-107) Carbon Dioxide Level 29 mmol/L (21-32) Anion Gap 6 (6-14) Blood Urea Nitrogen 10 mg/dL (8-26) Creatinine 0.7 mg/dL (0.7-1.3) Estimated GFR (Cockcroft-Gault) 117.5 BUN/Creatinine Ratio 14 (6-20) Glucose Level 89 mg/dL (70-99) Calcium Level 8.9 mg/dL (8.5-10.1) Total Bilirubin 0.6 mg/dL (0.2-1.0) Aspartate Amino Transf (AST/SGOT) 17 U/L (15-37) Alanine Aminotransferase (ALT/SGPT) 15 U/L (16-63) Alkaline Phosphatase 114 U/L (46-116) Total Protein 6.9 g/dL (6.4-8.2) Albumin 2.6 g/dL (3.4-5.0) Albumin/Globulin Ratio 0.6 (1.0-1.7) Medications Active Scripts Medications Dose Route/Sig Max Daily Dose Days Date Category Sucralfate 1 Gm/10 Ml Oral.susp 10 Ml PO BID 05/09/14 Reported Impression . 1. 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 The patient also has another masks close to the pleura. The findings on CT chest are highly suspicious for bronchogenic cancer, likely stage IV. 2. Chronic obstructive pulmonary disease with an exacerbation. 3. Weight loss and loss of appetite, secondary to suspected malignancy. 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 Plan . 1. Status post biopsy of mesenteric lymph node . Await results. 2. bronchodilators. 3. Discussed with Dr. Cotter. Consult medical oncology. 4. PFTs as an outpatient. 5. We will make further recommendations once diagnosis is confirmed. Discussed with patient's at the bedside. ISRAEL PIZANO MD July 19, 2021 09:38
[2021-07-19 10:36] VITALS: BP 120/67
[2021-07-19 14:18] VITALS: BP 128/71
[2021-07-19 19:57] VITALS: BP 112/70
[2021-07-19] MEDS: GABAPENTIN 400 MG CAPSULE. PO SCH (20:02)
[2021-07-19] MEDS: ATORVASTATIN CALCIUM 40 MG TABLET. PO SCH (20:02)
[2021-07-19 23:03] VITALS: BP 129/71
[2021-07-20] MEDS: MORPHINE SULFATE 4 MG/ML INJ. IVP PRN (00:54)
[2021-07-20] MEDS: HYDROmorphone 2 MG/ML INJ. IVP PRN ×6 (03:05→21:09)
[2021-07-20 03:22] VITALS: BP 123/78
[2021-07-20] MEDS: PANTOPRAZOLE 40 MG TABLET.DR. PO SCH (05:51)
[2021-07-20] MEDS: SUCRALFATE 1 GM TABLET. PO SCH ×4 (05:51→20:09)
[2021-07-20 07:00] VITALS: BP 118/78
[2021-07-20] MEDS: IPRATRPIUM/ALBUTEROL 0.5/2.5MG 3 ML NEBU. NEB SCH ×4 (07:35→21:24)
[2021-07-20] MEDS: POLYETHYLENE GLYCOL 3350 17 GM PACKET. PO SCH (08:17)
[2021-07-20] MEDS: DOCUSATE SODIUM 100 MG CAPSULE. PO SCH ×2 (08:18→20:09)
[2021-07-20] MEDS: oxyCODONE ER 10 MG TAB.ER.12H PO SCH ×2 (08:18→20:09)
[2021-07-20] MEDS: ENOXAPARIN 40 MG/0.4 ML SYRINGE. SQ SCH ×2 (08:19→20:11)
[2021-07-20] MEDS: TAMSULOSIN 0.4 MG CAP.ER.24H. PO SCH ×2 (08:19→12:00)
[2021-07-20] MEDS: FAMOTIDINE 20 MG TABLET. PO SCH ×2 (08:19→20:09)
--- NOTE | 2021-07-20 09:32 | PDOC ---
PULMONARY PROGRESS NOTES DATE: 07/20/21 TIME: 09:32 Subjective Patient is anxiously awaiting biopsy results not more short of air Vitals Vital Signs Date Time Temp Pulse Resp B/P (MAP) Pulse Ox O2 Delivery O2 Flow Rate FiO2 07/20/21 08:18 95 Nasal Cannula 3.0 07/20/21 07:00 98.2 91 19 118/78 (91) 98.2 General: Alert, No acute distress Lungs: Clear Cardiovascular: S1 Abdomen: Soft, Other (Obese) Neuro Exam: Alert Extremities: No Edema Skin: Warm Labs Laboratory Tests Test 07/19/21 06:30 White Blood Count 9.6 x10^3/uL (4.0-11.0) Red Blood Count 3.66 x10^6/uL (4.30-5.70) Hemoglobin 11.3 g/dL (13.0-17.5) Hematocrit 34.4 % (39.0-53.0) Mean Corpuscular Volume 94 fL (79-100) Mean Corpuscular Hemoglobin 31 pg (25-35) Mean Corpuscular Hemoglobin Concent 33 g/dL (31-37) Red Cell Distribution Width 14.3 % (11.5-14.5) Platelet Count 186 x10^3/uL (140-400) Sodium Level 137 mmol/L (136-145) Potassium Level 4.3 mmol/L (3.5-5.1) Chloride Level 102 mmol/L (98-107) Carbon Dioxide Level 29 mmol/L (21-32) Anion Gap 6 (6-14) Blood Urea Nitrogen 10 mg/dL (8-26) Creatinine 0.7 mg/dL (0.7-1.3) Estimated GFR (Cockcroft-Gault) 117.5 BUN/Creatinine Ratio 14 (6-20) Glucose Level 89 mg/dL (70-99) Calcium Level 8.9 mg/dL (8.5-10.1) Total Bilirubin 0.6 mg/dL (0.2-1.0) Aspartate Amino Transf (AST/SGOT) 17 U/L (15-37) Alanine Aminotransferase (ALT/SGPT) 15 U/L (16-63) Alkaline Phosphatase 114 U/L (46-116) Total Protein 6.9 g/dL (6.4-8.2) Albumin 2.6 g/dL (3.4-5.0) Albumin/Globulin Ratio 0.6 (1.0-1.7) Medications Active Scripts Medications Dose Route/Sig Max Daily Dose Days Date Category Sucralfate 1 Gm/10 Ml Oral.susp 10 Ml PO BID 05/09/14 Reported Impression . 1. 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 The patient also has another mass close to the pleura. The findings on CT chest are highly suspicious for bronchogenic cancer, likely stage IV. 2. Chronic obstructive pulmonary disease with an exacerbation. 3. Weight loss and loss of appetite, secondary to suspected malignancy. 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 4. COPD unknown FEV1 5. Tobacco dependence Plan . Updated 07/20 Bone scan result pending Mesenteric lymph node biopsy pending Discussed with patient and at the bedside Patient normally does not wear oxygen Outpatient PFT MANJU DUNCAN MD July 20, 2021 09:32
[2021-07-20 10:49] VITALS: BP 136/79
--- NOTE | 2021-07-20 11:14 | PN ---
DATE: 07/20/2021 SUBJECTIVE: The patient is resting, slightly up in bed, continued to complain of pain. Despite being on OxyContin and hydromorphone, he continues to have pain that requires pain medication more frequently every 4 hours, so I increased the frequency to every 3 hours. He is scheduled for total body bone scan this afternoon. We have not yet received the results from the pathologist. OBJECTIVE: GENERAL: On examining him, he looked well and was clearly in no apparent respiratory distress. No pallor, jaundice, cyanosis or thyromegaly. No jugular venous distention. No limb edema. VITAL SIGNS: His heart rate was 91, blood pressure was 118/78, temperature was 98.2, respiratory rate was 16 and oxygen saturation was 95% on 3 liters of oxygen. HEAD, EYES, EARS, NOSE, AND THROAT: Normocephalic, atraumatic. NECK: Supple. HEART: Showed normal first and second heart sounds. No gallop, rub or murmur. CHEST: Clear to auscultation, no crepitation or rhonchi. ABDOMEN: Distended, soft, nontender. NEUROLOGIC: He was grossly intact. He has left below-knee amputation. His intake was 2460, output was 4000. LABORATORY DATA: As of yesterday, his serum sodium was 137, potassium 4.3, chloride 102, bicarbonate 29, anion gap of 6, BUN 10, creatinine 0.7. Estimated GFR was 117 mL per minute. Her glucose was 89, calcium was 8.9. Total bilirubin, AST, ALT, alkaline phosphatase were normal. Total protein 6.9, albumin 2.6. His white cell count was 9.6, hemoglobin 11, hematocrit 34, MCV 94 and platelet count of 106,000. ASSESSMENT: 1. Abnormal CT scan of the chest showing moderate right hilar and right mediastinal lymphadenopathy consistent with metastatic disease. He also has a small loculated right-sided pleural effusion and pleural thickening. 2. Has multiple pleural based densities in the right, few parenchymal densities findings suggestive of cancer, which could be bronchogenic or mesothelioma. 3. CT scan of the abdomen and pelvis showed a mass in the right adrenal gland and also metastatic mesenteric lymph node that was biopsied. 4. Other medical problems include: A. Chronic obstructive pulmonary disease. B. Benign prostatic hypertrophy. C. Severe chronic back pain. PLAN: To continue with pain management in the form of OxyContin 10 mg twice a day. I will also increase his hydromorphone to every 3 hours. He is scheduled for a bone scan today and hopefully we did order the pathology report, so that we can consult the oncologist. VEGA DR: Abel TID: [id number]
--- NOTE | 2021-07-20 14:13 | RAD ---
EXAM: BONE SCINTIGRAPHY. HISTORY: Back pain. Stage IV lung cancer.. TECHNIQUE: Following the intravenous injection of 25.3 mCi of Tc-99m labeled methylene diphosphonate (MDP), delayed images of the whole body were performed in anterior and posterior projections. COMPARISON: CT lumbar spine 07/14/2021. FINDINGS: There is prominent increased activity in the left sacral ala. Mild foci of activity involvi ng the bilateral shoulders, left knee and right foot and ankle consistent with degenerative disease. There is a subtle area of increased activity in the right mid femur. Additional sites of subtle activ ity in the posterior left sixth rib, the anterior right sixth rib and left superior scapula. Postsurg ical changes from left below-knee amputation. IMPRESSION: 1. Prominent increased activity in the left sacral ala concerning for metastasis or fracture. 2. Additional sites of subtle increased activity including the right mid femur right sixth rib, left sixth rib and left scapula which may also represent sites of metastatic disease. Electronically signed by: Lukas Hernandez MD (07/20/2021 2:11 PM) [id number]
[2021-07-20 15:00] VITALS: BP 136/76
--- NOTE | 2021-07-20 15:34 | NUR ---
SS following up with discharge planning. SS reviewed pt chart and discussed with pt RN. Pt is currently requiring oxygen at three liters nasal canula. Pt declining PT/OT. SS will continue to follow for discharge planning.
[2021-07-20 19:58] VITALS: BP 138/64
[2021-07-20] MEDS: ATORVASTATIN CALCIUM 40 MG TABLET. PO SCH (20:09)
[2021-07-20] MEDS: GABAPENTIN 400 MG CAPSULE. PO SCH (20:09)
== END 2021-07-21 | disposition home or self-care (01) | DRG 186 ==
LOC: 6 SOUTH 03:59
PROVIDERS: ADMIT Internal Medicine; ATTEND Internal Medicine
PROC: 0WBH3ZX Excision of Retroperitoneum, Percutaneous Approach, Diagnostic (ICD-10-PCS; principal; 2021-07-16)
DX: J90 Pleural effusion, not elsewhere classified (principal); J96.01 Acute respiratory failure with hypoxia; C79.70 Secondary malignant neoplasm of unspecified adrenal gland; C78.2 Secondary malignant neoplasm of pleura; C77.9 Secondary and unspecified malignant neoplasm of lymph node, unspecified; C78.6 Secondary malignant neoplasm of retroperitoneum and peritoneum; C79.51 Secondary malignant neoplasm of bone; C80.1 Malignant (primary) neoplasm, unspecified; F17.210 Nicotine dependence, cigarettes, uncomplicated; G89.29 Other chronic pain; J43.9 Emphysema, unspecified; M48.061 Spinal stenosis, lumbar region without neurogenic claudication; N40.0 Benign prostatic hyperplasia without lower urinary tract symptoms; Z89.512 Acquired absence of left leg below knee; Z96.641 Presence of right artificial hip joint; K21.9 Gastro-esophageal reflux disease without esophagitis; K59.03 Drug induced constipation; K31.89 Other diseases of stomach and duodenum; T40.2X5A Adverse effect of other opioids, initial encounter; Z90.49 Acquired absence of other specified parts of digestive tract
CPT/HCPCS: 36415; 49180; 74176; 77012; 78306; 80053; 82962; 85025; 85027; 85610; 94640; 94760; 99152; 99153; A9503; J1170; J1650; J2250; J2270; J2405; J3010; J3490; G0378; J7613; Q0163